=== PATIENT | female | born 1980 | race Caucasian/White ===

== ENCOUNTER 2016-06-06 16:48 | Inpatient (IN) | payer OTHER ==
--- NOTE | ~2016-06-06 | HP ---
Unit #: [id number] #: [id number] Patient: REBEKAH YAO [id number] [place] [address] [id number] MR#: [id number] NAME: REBEKAH YAO. ROOM: P211 Age: 36 Sex: F Admission Date: 06/06/2016 : 1980 Attending Physician: Kalpesh Thornton M.D. Admitting Physician: Kalpesh Thornton M.D. Primary Care Physician: Generic Doctor Not In System HISTORY AND PHYSICAL HISTORY OF PRESENT ILLNESS Rebekah is a 36 year old admitted to [address] [place] [address] because of her abuse of alcohol. PAST MEDICAL HISTORY 1. Long history of alcohol abuse. 2. History of withdrawal seizures. 3. High blood pressure. 4. Hepatitis C. She was an IV drug user years ago. 5. History of cervical dysplasia. PAST SURGICAL HISTORY Nothing reported. ALLERGIES Penicillin. SOCIAL HISTORY Smokes 1 pack per day. Drinks at least a liter of vodka on a daily basis and denies illicit drug use. FAMILY HISTORY Medically noncontributory. REVIEW OF SYSTEMS CONSTITUTIONAL: No fever or chills. HEENT: Denies any sore throat, ear pain or runny nose. CARDIOVASCULAR: Denies chest pain, irregular heart rhythm or palpitations. CHEST: Denies shortness of breath or cough. No hemoptysis. GASTROINTESTINAL: Denies nausea, vomiting, diarrhea or chronic constipation. ENDOCRINE: Denies history of increased thirst or urination. No recent significant weight loss or gain. GENITOURINARY: Denies dysuria, frequency, or hematuria. SKIN: Denies any rashes. HEMATOLOGIC: Denies history of increased bleeding or bruising. MUSCULOSKELETAL: Denies any hot, swollen joints. No generalized muscle pain. NEUROLOGIC: Denies problems with vision or speech. No frequent, severe headaches. No numbness, tingling or weakness in any extremities. Denies loss of bladder or bowel control. CURRENT MEDICATIONS Unit #: [id number] #: [id number] Patient: REBEKAH YAO 1. Detox protocol. 2. Normodyne 100 mg b.i.d. 3. Prozac 20 mg daily. PHYSICAL EXAMINATION GENERAL: Alert, well-nourished, in no apparent distress. VITAL SIGNS: Blood pressure 144/102, heart rate 110, respirations 16, temperature 98.6. WEIGHT: 177. HEIGHT: 5 feet 3 inches. SKIN: Warm and dry without rash or lesion. HEENT: Normocephalic. TMs not viewed. Oral and nasal passages clear. Conjunctivae clear. PERRLA. EOMs intact. NECK: Supple without lymphadenopathy or thyromegaly. HEART: Regular rate and rhythm without murmur. LUNGS: Clear. ABDOMEN: Soft, nontender. : Not done. EXTREMITIES: No evidence of cyanosis, clubbing or edema. Moves all without focal deficit. NEUROLOGICAL: Grossly within normal limits. Cranial Nerves: II: Visual jean are intact. III, IV AND : Extraocular movements are intact. Pupils are equal, round and reactive to light. V: Facial sensation is grossly normal. VII: Facial movements and expression are normal. VIII: Auditory acuity grossly intact. IX, X: Uvula is midline. Phonation is normal. XI: Patient shrugs shoulders and turns head normally. XII: Tongue protrudes in the midline. Sensory and Motor Function: Sensory and motor sensation is grossly normal. Motor: moves all extremities well. Coordination: Gait is normal. Deep Tendon Reflexes: Intact. IMPRESSION Psychiatric admission. RECOMMENDATIONS PSYCHIATRIC: Per psychiatrist. MEDICAL: 1. See no contraindications to participate in facility's activities. 2. Detox per protocol. 3. Continue Normodyne. Monitor blood pressure q. shift. MEDICAL PROGNOSIS Good. MEDICAL CONDITION Stable. Dictated by... Denisse Garcia P.A.-C. for Lonny Salinas/john TD: 06/07/2016 17:09 Unit #: [id number] #: [id number] Patient: REBEKAH YAO JOB #: [id number] HISTORY AND PHYSICAL Page 1 of 1 X Denisse Garcia X HISTORY AND PHYSICAL
--- NOTE | ~2016-06-06 | DS ---
Unit #: [id number] #: [id number] Patient: REBEKAH MARTINEZ [id number] [place] [address] [id number] I MR#: [id number] NAME: REBEKAH MARTINEZ. ROOM: P21 Age: 36 Sex: F Admission Date: 06/06/2016 : 1980 Discharge Date: 06/09/2016 Attending Physician: Kalpesh Thornton M.D. Primary Care Physician: Generic Doctor Not In System DISCHARGE SUMMARY REASON FOR ADMISSION Ms. Martinez is a 36-year-old woman, who reports daily use of alcohol up to 2 gallons of vodka daily. She has only had a few weeks of sober living despite getting out of the hospital last month and has a history of withdrawal seizures. She was unable to contract for safety and was admitted for detox. DIAGNOSTIC STUDIES LABORATORY RESULTS: CMP demonstrated elevated liver functions with AST 168, ALT 110, alkaline phosphatase 129, glucose was high at 264, creatinine low at 0.5, sodium low at 134, potassium low at 3.1, and chloride low at 96. CBC demonstrated low white cells of 3.5, low RBCs of 3.66, but normal hemoglobin and hematocrit, MCV was elevated at 106.0 HOSPITAL COURSE The patient was admitted and placed on the alcohol detox protocol. Home medications were restarted and her physical examination was unremarkable. She participated appropriately and actively in unit groups and activities and on the date of discharge, was free of detox symptomatology with a plan to follow up with the community. DISCHARGE DIAGNOSES AXIS I: Alcohol dependence with withdrawal, uncomplicated, F10.230. AXIS II: No diagnosis. AXIS III: History of hepatitis C, history of hypertension. AXIS IV: AXIS V: DISCHARGE INSTRUCTIONS Follow up with primary care physician and chemical dependency programming of the patient's choice. DISCHARGE MEDICATIONS Prozac 20 mg daily for depression, trazodone 50 mg at bedtime for insomnia, Protonix 40 mg daily for GERD, labetalol 100 mg b.i.d. for hypertension. CONDITION AT DISCHARGE Improved. PROGNOSIS Unit #: [id number] #: [id number] Patient: REBEKAH MARTINEZ Fair to good. DIET AND ACTIVITY Per primary care physician. Dictated by... Kalpesh Thornton M.D. [facility]/modl TD: 06/16/2016 01:24 JOB #: [id number] DISCHARGE SUMMARY Page 1 of 1 X Kalpesh Thornton MD DISCHARGE SUMMARY
--- NOTE | ~2016-06-06 | PN ---
Unit #: [id number] #: [id number] Patient: REBEKAH MARTINEZ [id number] [facility] [address] [place] [address] [id number] I MR#: [id number] NAME: REBEKAH MARTINEZ ROOM: P211 Age: 36 Sex: F Admission Date: 06/06/2016 : 1980 Attending Physician: Kalpesh Thornton M.D. Admitting Physician: Kalpesh Thornton M.D. Primary Care Physician: Generic Doctor Not In System [facility] PROGRESS NOTES DATE 06/08/2016 DISCUSSION Ms. Martinez continues to have [id number] detox symptoms today. However she is participating appropriately in unit groups and activities and says that she is feeling hopeful about her future. She is alert and fully oriented. Her memory and concentration are fair to good and her thought processes are goal directed with no active psychosis. ASSESSMENT Alcohol dependence. PLAN Continue current treatment plan. Dictated by... Kalpesh Thornton M.D. [facility]/minor TD: 06/19/2016 08:16 JOB #: [id number] [facility] PROGRESS NOTES Page 1 of 1 X Kalpesh Thornton MD PROGRESS NOTE
--- NOTE | ~2016-06-06 | PA ---
Unit #: [id number] #: [id number] Patient: REBEKAH MARTINEZ [id number] [place] [address] [id number] MR#: [id number] NAME: REBEKAH MARTINEZ. ROOM: [facility] Age: 36 Sex: F Admission Date: 06/06/2016 : 1980 Date of Assessment: 06/07/2016 Attending Physician: Kalpesh Thornton M.D. Admitting Physician: Kalpesh Thornton M.D. Primary Care Physician: Generic Doctor Not In System PSYCHIATRIC ASSESSMENT DATE OF SERVICE 06/07/2016 INFORMANTS The patient, reliable. The patient's family, reliable. CHIEF COMPLAINT Alcoholism. HISTORY OF PRESENT ILLNESS Rebekah Martinez is a 36-year-old woman who reports she has daily use of alcohol of 2 gallon of vodka daily. She says that she has only had about 1-1/2 weeks of sober living after getting out of the hospital in 04/2016 and she does have a history of withdrawal seizures. She came in seeking help and had no suicidal ideation, intent, or plan. She was admitted for detox and establishment of sobriety. PAST PSYCHIATRIC HISTORY The patient was previously admitted for detox in April of this year and has been in outpatient services since that time. She currently takes Prozac 20 mg daily for depression. FAMILY PSYCHIATRIC HISTORY There is a family history of alcoholism. SOCIAL HISTORY The patient has an associates degree, but has been unemployed since 01/2016. She is currently living with her parents and unemployed for about 6 months. PAST MEDICAL HISTORY Significant for hypertension and hepatitis C. MEDICATIONS Labetalol 100 mg b.i.d. and Prilosec 20 mg daily. ALLERGIES Penicillin. SUBSTANCE ABUSE HISTORY As noted above. MENTAL STATUS EXAMINATION Unit #: [id number] #: [id number] Patient: REBEKAH MARTINEZ The patient presented as a mildly disheveled woman who appeared her stated age. She was pleasant and cooperative with the examination. Vital signs were temperature 98.3, blood pressure 143/20, respirations 20, pulse 131. Her speech was spontaneous and easily understood. Her musculoskeletal examination was calm. Her mood was mildly anxious with a congruent affect. She was alert and fully oriented. Her memory and concentration were fair to good. Her thought processes were goal directed with no active psychosis. She denied suicidal ideation, intent, or plan. Insight and judgment were fair. Fund of knowledge and abstraction were fair to good. ASSETS AND LIABILITIES The patient knows local resources, has some supportive family and stable housing. Liabilities include difficulty establishing and maintaining sobriety. ADMITTING DIAGNOSES AXIS I: Alcohol dependence, F10.230. AXIS II: No diagnosis. AXIS III: Hypertension, hepatitis C. AXIS IV: AXIS V: PSYCHIATRIC PLAN The patient was admitted and placed on the alcohol detox protocol. Her home medications will be restarted. Physical examination and laboratory studies will be conducted and reviewed. Treatment goals are establishment of sobriety, improvement in insight, and improvement in coping skills. DISCHARGE PLANNING Follow up with community mental health resources. ESTIMATED LENGTH OF STAY 5 days. Dictated by... Kalpesh Thornton M.D. [facility]/malachi TD: 06/08/2016 01:49 JOB #: [id number] PSYCHIATRIC ASSESSMENT Page 1 of 1 X aKlpesh Thornton MD X PSYCHIATRIC ASSESSMENT
[2016-06-07 09:52] LABS: BASOPHIL% 0.7 % (0-2.5); EOSINOPHIL# 0.1 X10e3 (0-0.7); EOSINOPHIL% 1.9 % (0.0-7.0); HEMATOCRIT 38.8 % (35.0-45.0); HEMOGLOBIN 13.2 gm/dL (12.0-16.0); LYMPHOCYTE% 29.3 % (17.0-45.0); MEAN CORPUSCULAR HEMOGLOBIN 36.1 PG (28-34); MEAN CORPUSCULAR HGB CONC 34.1 g/dL (30-36); MONOCYTE# 0.2 X10e3 (0-1.0); MONOCYTE% 4.9 % (3.0-12.0); NEUTROPHIL# 2.2 X10e3 (1.5-7.1); NEUTROPHIL% 63.2 % (40-75); RED BLOOD COUNT 3.66 X10e (3.90-5.30); RED CELL DISTRIBUTION WIDTH 16.7 % (11.0-15.5); WHITE BLOOD COUNT 3.5 X10e3 (4.0-10.5)
[2016-06-07 10:05] LABS: ALBUMIN SERUM 4.1 g/dL (3.5-5.0); ALKALINE PHOSPHATASE 129 U/L (32-92); ALT (SGPT) 110 U/L (10-40); AST (SGOT) 168 U/L (10-42); BILIRUBIN,TOTAL 1.5 mg/dL (0.2-2.0); BLOOD UREA NITROGEN 10 mg/dL (9-23); CALCIUM SERUM 9.1 mg/dL (8.4-10.2); CARBON DIOXIDE 27 mmol/L (22-31); CHLORIDE 96 mmol/L (100-111); CREATININE SERUM 0.5 mg/dL (0.6-1.4); GLOM FILT RATE Estimated ABOVE60 mL/min (>60); GLUCOSE FASTING 264 mg/dL (70-110); POTASSIUM 3.1 mmol/L (3.5-5.1); PROTEIN TOTAL SERUM 7.7 g/dL (6.0-8.3); SODIUM 134 mmol/L (135-145)
[2016-06-07 10:13] LABS: DIFF IND YES; PLATELET COUNT 87 X10e3 (140-420)
[2016-06-07 10:15] LABS: ANISOCYTOSIS SL; PLATELET ESTIMATE DECREASED (NORMAL)
== END 2016-06-09 14:10 | disposition home or self-care (01) | DRG 897 ==
LOC: P2S 16:48
PROVIDERS: Psychiatry & Neurology Psychiatry
PROC: HZ2ZZZZ Detoxification Services for Substance Abuse Treatment (ICD-10-PCS; principal; 2016-06-06)
DX: F10.230 Alcohol dependence with withdrawal, uncomplicated (principal); I10 Essential (primary) hypertension; B19.20 Unspecified viral hepatitis C without hepatic coma; F17.210 Nicotine dependence, cigarettes, uncomplicated; Z88.0 Allergy status to penicillin
CPT/HCPCS: 80053; 85025; 86592